=== PATIENT | male | born 1960 | race Caucasian/White ===

== ENCOUNTER → 2021-05-18 14:00 | Outpatient (BNVA) | payer OTHER, SELFPAY | PROVIDERS: PCP Physician Assistant; Visit Provider Internal Medicine Pulmonary Disease | DX: J43.8 Other emphysema (principal) | CPT/HCPCS: 99212 ==

== ENCOUNTER 2021-06-08 12:58 | Outpatient (REF) | payer OTHER, SELFPAY ==
--- NOTE | ~2021-06-08 | CT_ITS ---
EXAMINATION: CT CHEST SCREENING CLINICAL INFORMATION: Current smoker. 30 pack-year history. COMPARISON: Previous chest CT scans most recent March 2020 TECHNIQUE: Multidetector volumetric CT imaging of the chest is performed without contrast using low dose technique. Additional 2D coronal and sagittal reformatted images and axial 3D maximum intensity projection (MIP) images are generated on the CT workstation. This CT examination was performed using dose optimization techniques as appropriate, variously including the following: *Automated exposure control *Adjustment of mA and/or kV according to patient size (this includes techniques or standardized protocols for targeted exams where dose is matched to indication/reason for exam; i.e. extremities or head) *Use of iterative reconstruction technique DLP: 48 mGy-cm FINDINGS: LUNGS: There is evidence of mild emphysema. There is mild biapical pleural and parenchymal scarring. There is a 4 mm peripheral or subpleural right upper lobe nodule axial image 96 series 5 that is stable. There is a 3 mm semisolid left upper lobe nodule axial image 200 series 5 that is stable. There is a 2 mm left upper lobe nodule axial image 239 series 5 that is stable. There is a 2 mm calcified left lower lobe nodule axial image 302 series 5 that is able. There is linear scarring or chronic subsegmental atelectasis in the posterior basal left lower lobe that is stable. There is a new 3 mm right lower lobe nodule axial image 458 series 5 probably representing bronchial soft tissue opacification. MEDIASTINUM: There is mild coronary artery calcification. The mediastinum is otherwise normal. PLEURA: There is no pleural effusion. No pleural mass or thickening. AXILLA: No lymphadenopathy. UPPER ABDOMEN: Unremarkable OSSEOUS STRUCTURES: There are degenerative changes of the spine. There are old right-sided rib fractures. CT/CT lung screening IMPRESSION: Mild emphysema and biapical pleural parenchymal scarring. New 3 mm right lower lobe nodule probably representing endobronchial soft tissue opacification. Otherwise small pulmonary nodules are stable. ASSESSMENT: Lung-RADS category 2: Benign RECOMMENDATION: Annual low-dose chest CT follow-up recommended.
== END 2021-06-08 12:59 | disposition home or self-care (01) ==
LOC: HO.CT 12:58
PROVIDERS: PCP Physician Assistant; Visit Provider Physician Assistant Medical
DX: F17.210 Nicotine dependence, cigarettes, uncomplicated (principal)
CPT/HCPCS: 71271

== ENCOUNTER → 2021-06-14 09:12 | Outpatient (BNVA) | payer OTHER, SELFPAY | PROVIDERS: PCP Physician Assistant; Visit Provider Internal Medicine Pulmonary Disease | DX: J43.8 Other emphysema (principal) | CPT/HCPCS: 99212 ==

== ENCOUNTER → 2021-08-01 08:52 | Outpatient (REF) | payer OTHER, SELFPAY | LOC: HO.SL 08:52 | PROVIDERS: PCP Physician Assistant; Visit Provider Physician Assistant | DX: R06.81 Apnea, not elsewhere classified (principal) | CPT/HCPCS: 95806 ==

== ENCOUNTER → 2021-09-18 08:50 | Outpatient (BNVA) | payer OTHER, SELFPAY | PROVIDERS: PCP Physician Assistant; Visit Provider Internal Medicine Pulmonary Disease | DX: J43.8 Other emphysema (principal) | CPT/HCPCS: 99212 ==

== ENCOUNTER → 2022-04-23 08:53 | Outpatient (BNVA) | payer OTHER, SELFPAY | PROVIDERS: PCP Physician Assistant; Visit Provider Internal Medicine Pulmonary Disease | DX: J43.8 Other emphysema (principal); J34.2 Deviated nasal septum; Z87.891 Personal history of nicotine dependence | CPT/HCPCS: 99212 ==

== ENCOUNTER 2022-08-08 09:07 | Outpatient (REF) | payer OTHER, SELFPAY ==
[2022-08-08 10:03] LABS: Hematocrit 43.8 % (42.0-52.0); Mean Corpuscular HGB Conc 34.2 g/dl (31.0-36.0); Mean Corpuscular Hemoglobin 32.8 pg (27.0-33.0); Mean Corpuscular Volume 95.6 fL (80.0-98.0); Mean Platelet Volume 9.4 fL (9.4-12.4); Platelet Count 208 X10*3/uL (160-400); Red Blood Count 4.58 X10*6/uL (4.60-5.80); Red Cell Distribution Width 12.4 % (11.0-16.0); White Blood Count 7.9 X10*3/uL (4.8-10.8)
[2022-08-08 13:06] LABS: Alanine Aminotransferase 36 U/L (0-40); Albumin Level 4.7 g/dL (3.5-5.0); Alkaline Phosphatase 59 U/L (39-117); Anion Gap 15 (12-20); Aspartate Amino Transferase 39 U/L (5-37); Bilirubin Total 0.8 mg/dL (0.0-1.0); Blood Urea Nitrogen 22 mg/dL (9-16); Calcium 10.1 mg/dL (8.4-10.2); Carbon Dioxide 30 mmol/L (22-29); Chloride 97 mmol/L (96-108); Cholesterol 188 mg/dL; Estimated Glomerular Filt Rate > 60; Glucose Fasting 112 mg/dL (60-99); HDL Cholesterol 74 mg/dL; LDL Cholesterol Calculated 96 mg/dl; Potassium 3.3 mmol/L (3.3-5.1); Sodium 139 mmol/L (135-145); Total Protein 7.8 g/dL (6.5-8.0); Triglycerides 90 mg/dL
== END 2022-08-08 09:08 | disposition home or self-care (01) ==
LOC: HO.LAB 09:07
PROVIDERS: PCP Physician Assistant; Visit Provider Nurse Practitioner Family
DX: I10 Essential (primary) hypertension (principal)
CPT/HCPCS: 36415; 80053; 80061; 85027

== ENCOUNTER 2022-09-23 09:31 | Outpatient (REF) | payer OTHER, SELFPAY ==
--- NOTE | ~2022-09-23 | CT_ITS ---
EXAMINATION: CT CHEST SCREENING CLINICAL INFORMATION: Nicotine dependence. COMPARISON: CT chest 06/08/2021 TECHNIQUE: Multidetector volumetric CT imaging of the chest is performed without contrast using low dose technique. Additional 2D coronal and sagittal reformatted images and axial 3D maximum intensity projection (MIP) images are generated on the CT workstation. This CT examination was performed using dose optimization techniques as appropriate, variously including the following: *Automated exposure control *Adjustment of mA and/or kV according to patient size (this includes techniques or standardized protocols for targeted exams where dose is matched to indication/reason for exam; i.e. extremities or head) *Use of iterative reconstruction technique DLP: 51 mGy-cm FINDINGS: LUNGS: The lungs are mildly hyperinflated with minimal bilateral apical thickening and parenchymal scarring. There are scattered pulmonary nodules bilaterally. A 4 mm peripheral-based right upper lobe nodule medially axial image 13/4, peripherally-based 2 mm nodule left upper lobe axial image 206/6. There is a punctate calcification, left lower lobe adjacent to major fissure, image 39/4. A 3 mm nodule left CP angle axial image 58/4. MEDIASTINUM: The thyroid lobes are symmetric and normal. The central trachea and bronchi are widely patent. The heart size and great vessels are normal caliber. No abnormal size mediastinal or hilar lymphadenopathy seen. CORONARY ARTERY CALCIFICATION: There is trace coronary artery calcifications present. PLEURA: There is no pleural effusion. No pleural mass or thickening. AXILLA: No lymphadenopathy. UPPER ABDOMEN: Visualized liver, spleen, pancreas and bilateral adrenal glands are unremarkable. OSSEOUS STRUCTURES: No aggressive lytic or sclerotic process seen. CT/CT lung screening IMPRESSION: Emphysema with stable bilateral pulmonary nodules. No new pulmonary nodules seen. ASSESSMENT: Lung-RADS category 2: Benign RECOMMENDATION: Low-dose annual CT chest
== END 2022-09-23 09:32 | disposition home or self-care (01) ==
LOC: HO.CT 09:31
PROVIDERS: PCP Nurse Practitioner Family; Visit Provider Physician Assistant Medical
DX: Z12.2 Encounter for screening for malignant neoplasm of respiratory organs (principal); F17.210 Nicotine dependence, cigarettes, uncomplicated
CPT/HCPCS: 71271

== ENCOUNTER 2023-05-28 14:42 | Outpatient (AMB) | payer OTHER, SELFPAY ==
--- NOTE | 2023-05-28 15:05 | A.OFFPC_ITS ---
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 Accompanied by: Self / Same As Patient Allergies amlodipine Allergy (Unknown, Verified 05/28/23 15:31) Dizziness lisinopril Allergy (Unknown, Verified 05/28/23 15:31) Dizziness Medication List - Last Reconciled 05/28/23 by Julian Felder PA-C blood pressure monitor As directed hydrochlorothiazide 25 mg PO DAILY ibuprofen 800 mg PO BID losartan 25 mg PO DAILY metoprolol succinate ER 25 mg PO DAILY 30 days Ventolin HFA 90 mcg/actuation (albuterol sulfate) 2 puffs inhalation Q4-6H PRN 30 days NS Tobacco use date assessed: 12/19/22 Fall risk assessment: No Falls in past year Last assessed Fall Risk: 05/28/23 Dental Screening Dental Screen Date: 05/28/23 Did you have a dental visit in the last 12 months?: Yes Did you have a dental problem in the last 6 months where you did not have access to dental care?: No Was dental information given to patient?: Patient has dentist HPI Hypertension F/U HPI Details Yeyo 62 y/o male here today for follow-up visit.? Patient's past medical history significant for hypertension, moderate to severe Emphysema. ? COPD: HAs quite smoking ( 08/13/21) !! REports his breathing has been better. Doesnt use any inhalers at this time. He still continues to have some shortness of breath on exertion. Does use an albuterol inhaler on a very limited p.r.n. basis and is willing to use this more often for shortness of breath. .. HTN:? He does have a previous history of hypertension though has stopped taking blood pressure medication due to making him more dizzy.? Today in office blood pressure elevated today in office. Will refill his losartan 25 mg Advised to do home blood pressure monitoring and if consistently above 140/90 PFSH Medical History Normal colonoscopy Surgical History H/O hernia repair History of appendectomy Family History Father Medical history unknown Mother Medical history unknown Social History Housing: House Alcohol intake: current Alcohol intake frequency: 3 or more drinks per day Alcohol type: beer Patient Tobacco Use Status: Former Tobacco user Cigarettes Per Day: 10 Years Smoked: 45, pt states quit 08/14/22 e-Cigarette/Vaping Use: Never Used Current occupational status: retired Cognitive needs: No Hearing needs: No Vision needs: No Questionnaire Thrive Questionnaire Date Thrive assessed: 07/23/22 ISA-7 AMB Questionnaire ISA-7 Date ISA - 7 assessed: 10/22/21 Source: Developed by Drs. Driss Boykin, Malika Sneed, Aaron Hurtado and colleagues, with an educational juan alberto from [employer]. Review of Systems Const Denies headache(s) Eyes Denies loss of vision ENT Denies vertigo, Denies dizziness, Denies headache(s) and Denies sore throat Card Denies chest pain, Denies leg edema, Denies lightheadedness and Reports dyspnea on exertion Resp Denies cough, Denies hemoptysis, Reports dyspnea on exertion and Denies wheezing GI Denies abdominal pain, Denies melena, Denies constipation, Denies diarrhea and Denies vomiting Denies dysuria, Denies urinary frequency and Denies urinary urgency Musc Denies arthralgias, Denies joint swelling, Denies numbness and Denies tingling Neuro Denies Abnormal speech present, Denies behavioral changes, Denies vertigo, Denies dizziness, Denies headache(s), Denies loss of vision, Denies memory loss, Denies numbness and Denies tingling Psych Denies anxiety, Denies behavioral changes, Denies depression, Denies memory loss and Denies panic attacks Alejandro/Lymph Denies easy bleeding and Denies easy bruising Aller/Immun Denies wheezing Physical exam (Primary Care) Vital Signs: Last Vital Signs Pulse 76 05/28/23 15:12 Resp 17 05/28/23 15:12 BP 160/86 H 05/28/23 15:12 Pulse Ox 95 05/28/23 15:12 BMI result Body Mass Index 19.7 Tobacco/Smoking Status: Tobacco use Status Tobacco use date assessed 12/19/22 05/28/23 15:07 Patient Tobacco Use Status Former Tobacco user 05/28/23 15:07 e-Cigarette/Vaping Use Never Used 05/28/23 15:07 Thrive Assessment: Date of Thrive Assessment Date Thrive assessed 07/23/22 05/28/23 15:07 Const General: healthy appearing, no acute distress, alert and awake Nutritional Appearance: well nourished Orientation/consciousness: oriented to person, oriented to place and oriented to time HENMT Ears: TM's normal bilaterally General nose exam: Normal nasal mucous membranes and turbinates present Eyes Conjunctivae: conjunctivae normal Sclerae: sclerae normal Pupils: Equal, round and reactive pupils present Neck Neck: Yes no lymphadenopathy and Yes no JVD Thyroid: Thyroid normal Carotids: no bruits Resp Effort & Inspection: normal respiratory effort and not tachypneic Auscultation: no crackles, no rales, no rhonchi and no wheezes Cardio Rate: regular rate Rhythm: regular rhythm Heart sounds: no murmurs and normal S1 and S2 GI Palpation (GI): Soft to palpation, nontender, no hepatomegaly and no splenomegaly Auscultation: normal bowel sounds Skin General skin exam: no rashes or lesions noted and dry skin Neuro General: oriented to person, oriented to place and oriented to time Cranial nerves: Yes Equal, round and reactive pupils present Speech: No Abnormal speech present Gait exam (Neuro): Normal gait present Motor exam (neuro): no tremor noted Extrem Right upper extremity: full ROM Left upper extremity: full ROM Right lower extremity: full ROM; no edema Left lower extremity: full ROM; no edema Psych Mental Status: mental status grossly normal Speech and movement: Normal speech and movement present Affect: normal affect Attitude: cooperative Thought process: Normal thought process present Assessment and Plan Assessment & Plan (1) HTN (hypertension): Code(s): I10 - Essential (primary) hypertension Qualifiers: Hypertension type: essential hypertension Qualified Code(s): I10 - Essential (primary) hypertension Plan: Patient's blood pressure elevated today in office. He reports pressures are 40s to 160 systolic. Restart his losartan mg better blood pressure control. Goal pressures to be below 40/90 (2) COPD (chronic obstructive pulmonary disease): Code(s): J44.9 - Chronic obstructive pulmonary disease, unspecified Qualifiers: COPD type: emphysema Emphysema type: other Qualified Code(s): J43.8 - Other emphysema Plan: Patient is followed by lung cancer screening program. Most recent CT lung showing emphysema and stable appearance. He does report having some shortness of breath on exertion like going up stairs or long walks. Advised to use his albuterol inhaler before he does physical activity. We did discuss the possible need to repeat pulmonary function testing though patient is considering. Will consider maintenance inhaler if pulmonary symptoms worsen Orders: Orders Microalbumin, Random (w Creat) Today I10 - Essential (primary) hypertension Comprehensive [place]. Panel Fast Today I10 - Essential (primary) hypertension Complete Blood Count no Diff Today I10 - Essential (primary) hypertension Prostate Specific Antigen Scr Today I10 - Essential (primary) hypertension, Z12.5 - Encounter for screening for malignant neoplasm of prostate Medications: New loratadine (Allergy Relief (loratadine)) 10 mg PO DAILY 90 days 90 tabs 1RF J32.9 - Chronic sinusitis, unspecified albuterol sulfate 90 mcg/actuation (Ventolin HFA) 1 inh inhalation QID 30 days PRN 8.5 grams 1RF shortness of breath or wheezing J43.8 - Other emphysema Refilled hydrochlorothiazide 25 mg PO DAILY 90 tabs 1RF I10 - Essential (primary) hypertension losartan 25 mg PO DAILY 30 tabs 1RF I10 - Essential (primary) hypertension Discontinued Ventolin HFA 90 mcg/actuation (albuterol sulfate) Discontinued Reason: None 2 puffs inhalation Q4-6H 30 days PRN 18 grams 4RF shortness of breath or wheezing NS Coding Level of Care Code Est Pt Level 4 (11869) Diagnoses Essential hypertension I10 Hypertension type: essential hypertension Other emphysema J43.8 COPD type: emphysema Emphysema type: other
[2023-05-28 15:12] VITALS: BP 160/86; PULSE 76; RESP 17; O2SAT 95; BMI 19.7
== END 2023-05-28 15:53 | disposition home or self-care (01) ==
PROVIDERS: PCP Physician Assistant; Visit Provider Physician Assistant
DX: I10 Essential (primary) hypertension (principal); J43.8 Other emphysema; Z87.891 Personal history of nicotine dependence
CPT/HCPCS: 99214

== ENCOUNTER 2023-08-28 09:34 | Outpatient (AMB) | payer OTHER, SELFPAY ==
[2023-08-28 09:46] VITALS: BP 140/70; PULSE 72; RESP 17; BMI 20.3
--- NOTE | 2023-08-28 09:46 | MHC.PC.OV ---
Vital Signs 08/28/23 09:46 Height 5 ft 9 in Weight 137 lb 6 oz BMI 20.3 BP 140/70 H Blood Pressure Location Lt brachial Position Sitting Respiration 17 Pulse 72 Pulse Source Palpation Intake Visit Reasons: f/u HTN/ COPD Intake Note: Patient is here today for a physical. Glue Sprayer Required: No Accompanied by: Self / Same As Patient Allergies amlodipine Allergy (Unknown, Verified 08/28/23 10:08) Dizziness lisinopril Allergy (Unknown, Verified 08/28/23 10:08) Dizziness Medication List - Last Reconciled 08/28/23 by Julian Felder PA-C albuterol sulfate 90 mcg/actuation (Ventolin HFA) 1 inh inhalation QID PRN 30 days blood pressure monitor As directed hydrochlorothiazide 25 mg PO DAILY ibuprofen 800 mg PO BID loratadine (Allergy Relief (loratadine)) 10 mg PO DAILY 90 days losartan 25 mg PO DAILY Tobacco use date assessed: 08/28/23 Fall risk assessment: No Falls in past year Last assessed Fall Risk: 08/28/23 Dental Screening Dental Screen Date: 08/28/23 Did you have a dental visit in the last 12 months?: Yes Did you have a dental problem in the last 6 months where you did not have access to dental care?: No Was dental information given to patient?: Patient has dentist HPI f/u HTN/ COPD HPI Details Yeyo 62 y/o male here today for follow-up visit.? Patient's past medical history significant for hypertension, moderate to severe Emphysema. Concern--> reports he has been having some difficulty staying asleep. He was on sleeping aid medication in the past with good effect. He would like to restart sleeping medication. ? COPD: quite smoking ( 08/13/21) !! REports his breathing has been better. Doesnt use any inhalers at this time. He still continues to have some shortness of breath on exertion. Does use an albuterol inhaler on a very limited p.r.n. basis and is willing to use this more often for shortness of breath. .. HTN: Blood pressure today in office slightly elevated. He does report at home blood pressures are fairly stable 130-140 systolic. Continues on losartan and hydrochlorothiazide. Of note in the past had side effects to higher doses of blood pressure medication. Advised to do home blood pressure monitoring and if consistently above 140/90 [facility] Medical History Normal colonoscopy Surgical History H/O hernia repair History of appendectomy Family History Father Medical history unknown Mother Medical history unknown Social History Housing: House Alcohol intake: current Alcohol intake frequency: 3 or more drinks per day Alcohol type: beer Patient Tobacco Use Status: Former Tobacco user Cigarettes Per Day: 10 Years Smoked: 45, pt states quit 08/14/22 e-Cigarette/Vaping Use: Never Used service: No Current occupational status: retired Cognitive needs: No Hearing needs: No Vision needs: No Questionnaire PHQ-9 Over the last 2 weeks, how often have you been bothered by any of the following problems? 1. Little interest or pleasure in doing things: not at all 2. Feeling down, depressed, or hopeless: not at all 3. Trouble falling or staying asleep, or sleeping too much: not at all 4. Feeling tired or having little energy: not at all 5. Poor appetite or overeating: not at all 6. Feeling bad about yourself - or that you are a failure or have let yourself or your family down: not at all 7. Trouble concentrating on things, such as reading the newspaper or watching television: not at all 8. Moving or speaking so slowly that other people could have noticed. Or the opposite - being so fidgety or restless that you have been moving around a lot more than usual: not at all 9. Thoughts that you would be better off or of hurting yourself in some way: not at all Total score: 0 Depression Screening Interpretation: Negative Depression Screening Done: Yes 04027 - PHQ-9 Billing: Yes Source: Developed by Drs. Driss Boykin, Malika Sneed, Aaron Hurtado and colleagues, with an educational juan alberto from [employer]. Thrive Questionnaire Date Thrive assessed: 08/28/23 I am a: Patient What is your living situation today?: I have a steady place to live Within the past 12 months, did the food you bought not last and you didn't have the money to get more?: Never true Within the past 12 months, did you worry whether your food would run out before you got money to buy more?: Never true Do you have trouble paying for medicines?: No Do you have trouble getting transportation to medical appointments?: No Do you have trouble paying your heating and electricity bill?: No Do you have trouble taking care of your child, family member or friend?: No Do you have trouble with day-to-day activities such as bathing, preparing meals, shopping, managing finances, etc.?: No Are you currently unemployed and looking for a job?: No Are you interested in more education?: No Please select the resources that you would like help with: None Currently or been in a relationship where the following occur: no concerns reported AUDIT C Alcohol Use Questionnaire (AUDIT-C) 1. How often do you have a drink containing alcohol?: 2-3 times a week 2. How many drinks containing alcohol do you have on a typical day when you are drinking?: 5 or 6 3. How often do you have six or more drinks on one occasion?: Never Total Score: 5 Score Reviewed/Action Taken: Yes ISA-7 AMB Questionnaire ISA-7 Date ISA - 7 assessed: 08/28/23 Feeling nervous, anxious, or on edge: 0 = Not at all Not being able to stop or control worryin = Not at all Worrying too much about different things: 0 = Not at all Trouble relaxin = Not at all Being so restless that it is hard to sit still: 0 = Not at all Becoming easily annoyed or irritable: 0 = Not at all Feeling afraid as if something awful might happen: 0 = Not at all Total ISA-7 score (0-4 normal; 5-9 mild; 10-14 moderate; 15-21 severe): 0 Source: Developed by Drs. Driss Boykin, Malika Sneed, Aaron Hurtado and colleagues, with an educational juan alberto from [employer]. ISA-7 Assessment Billing ISA-7 Assessment Tool: ISA-7 Assessment 73014 Review of Systems Const Denies headache(s) Eyes Denies loss of vision ENT Denies vertigo, Denies dizziness, Denies headache(s) and Denies sore throat Card Denies chest pain, Denies leg edema and Denies lightheadedness Resp Denies cough, Denies hemoptysis and Denies wheezing GI Denies abdominal pain, Denies melena, Denies constipation, Denies diarrhea and Denies vomiting Denies dysuria, Denies urinary frequency and Denies urinary urgency Musc Denies arthralgias, Denies joint swelling, Denies numbness and Denies tingling Neuro Denies Abnormal speech present, Denies behavioral changes, Denies vertigo, Denies dizziness, Denies headache(s), Denies loss of vision, Denies memory loss, Denies numbness and Denies tingling Psych Denies anxiety, Denies behavioral changes, Denies depression, Denies memory loss and Denies panic attacks Alejandro/Lymph Denies easy bleeding and Denies easy bruising Aller/Immun Denies wheezing Physical exam (Primary Care) Vital Signs: Last Vital Signs Pulse 72 08/28/23 09:46 Resp 17 08/28/23 09:46 BP 140/70 H 08/28/23 09:46 BMI result Body Mass Index 20.3 Tobacco/Smoking Status: Tobacco use Status Tobacco use date assessed 08/28/23 08/28/23 09:58 Patient Tobacco Use Status Former Tobacco user 08/28/23 09:46 e-Cigarette/Vaping Use Never Used 08/28/23 09:46 PHQ-9: PHQ-9 Score PHQ-9: Total score 0 08/28/23 10:18 Depression Screening Interpretation: Negative Thrive Assessment: Date of Thrive Assessment Date Thrive assessed 08/28/23 08/28/23 09:58 Currently or been in a relationship where the following occur: no concerns reported Const General: healthy appearing, no acute distress, alert and awake Nutritional Appearance: well nourished Orientation/consciousness: oriented to person, oriented to place and oriented to time HENMT Ears: TM's normal bilaterally General nose exam: Normal nasal mucous membranes and turbinates present Eyes Conjunctivae: conjunctivae normal Sclerae: sclerae normal Pupils: Equal, round and reactive pupils present Neck Neck: Yes no lymphadenopathy and Yes no JVD Thyroid: Thyroid normal Carotids: no bruits Resp Effort & Inspection: normal respiratory effort and not tachypneic Auscultation: no crackles, no rales, no rhonchi and no wheezes Cardio Rate: regular rate Rhythm: regular rhythm Heart sounds: no murmurs and normal S1 and S2 GI Palpation (GI): Soft to palpation, nontender, no hepatomegaly and no splenomegaly Auscultation: normal bowel sounds Skin General skin exam: no rashes or lesions noted and dry skin Neuro General: oriented to person, oriented to place and oriented to time Cranial nerves: Yes Equal, round and reactive pupils present Speech: No Abnormal speech present Gait exam (Neuro): Normal gait present Motor exam (neuro): no tremor noted Extrem Right upper extremity: full ROM Left upper extremity: full ROM Right lower extremity: full ROM; no edema Left lower extremity: full ROM; no edema Psych Mental Status: mental status grossly normal Speech and movement: Normal speech and movement present Affect: normal affect Attitude: cooperative Thought process: Normal thought process present Assessment and Plan Assessment & Plan (1) HTN (hypertension): Code(s): I10 - Essential (primary) hypertension Qualifiers: Hypertension type: essential hypertension Qualified Code(s): I10 - Essential (primary) hypertension Plan: Patient's blood pressure slightly elevated today in office. His home blood pressure readings are 130s to 140 systolic. Not interested in increasing his blood pressure medication at this time. Advised to continue monitoring blood pressure at home. Goal pressures to be below 140/90 (2) COPD (chronic obstructive pulmonary disease): Code(s): J44.9 - Chronic obstructive pulmonary disease, unspecified Qualifiers: COPD type: emphysema Emphysema type: other Qualified Code(s): J43.8 - Other emphysema Plan: Patient is followed by lung cancer screening program. CT lung showing emphysema and stable appearance. He does report having some shortness of breath on exertion like going up stairs or long walks. Advised to use his albuterol inhaler before he does physical activity. We did discuss the possible need to repeat pulmonary function testing though patient is considering. Will consider maintenance inhaler if pulmonary symptoms worsen (3) Insomnia: Code(s): G47.00 - Insomnia, unspecified Qualifiers: Insomnia type: primary Qualified Code(s): F51.01 - Primary insomnia Plan: Reports he has been suffering with some insomnia as of late. Was on sleeping medication the past. Willing to start hydroxyzine 10-20 mg before bed. (4) Former smoker: Code(s): Z87.891 - Personal history of nicotine dependence Plan: As above has quit smoking in 2020. Currently part of the lung cancer screening program here in [place]. Medications: New hydroxyzine HCl 20 mg (2 x 10 mg) PO BEDTIME 30 days 60 tabs 1RF F41.9 - Anxiety disorder, unspecified, F51.01 - Primary insomnia Coding Level of Care Code Est Pt Level 4 (68185) Diagnoses Essential hypertension I10 Hypertension type: essential hypertension Other emphysema J43.8 COPD type: emphysema Emphysema type: other Primary insomnia F51.01 Insomnia type: primary Former smoker Z87.891 Additional Codes ISA-7 Assessment Billing - ISA-7 Assessment Tool: ISA-7 Assessment 79301 ([id number])
== END 2023-08-28 10:26 | disposition home or self-care (01) ==
PROVIDERS: PCP Physician Assistant; Visit Provider Physician Assistant
DX: I10 Essential (primary) hypertension (principal); J43.8 Other emphysema; F51.01 Primary insomnia; Z87.891 Personal history of nicotine dependence
CPT/HCPCS: 99214

== ENCOUNTER 2023-09-29 08:36 | Outpatient (REF) | payer OTHER, SELFPAY ==
--- NOTE | ~2023-09-29 | CT_ITS ---
EXAMINATION: CT CHEST SCREENING CLINICAL INFORMATION: 50 pack year smoking history; question 2 years prior. COMPARISON: Prior CT chest screening examinations, most recently 09/26/2022. TECHNIQUE: Multidetector volumetric CT imaging of the chest is performed without contrast using low dose technique. Additional 2D coronal and sagittal reformatted images and axial 3D maximum intensity projection (MIP) images are generated on the CT workstation. This CT examination was performed using dose optimization techniques as appropriate, variously including the following: *Automated exposure control *Adjustment of mA and/or kV according to patient size (this includes techniques or standardized protocols for targeted exams where dose is matched to indication/reason for exam; i.e. extremities or head) *Use of iterative reconstruction technique DLP: 47 mGy-cm FINDINGS: LUNGS: At the posteromedial right apex (5:83), a stable 3 mm benign pleural-based lymph node is seen. Within the anterior segment of the left upper lobe (5:180, 222 and 280), 3 mm, 2 mm and 3 mm peripheral noncalcified nodules are seen. A small benign, calcified granuloma is seen within the superior segment of the left lower lobe (5:296). There is no new nodule, mass, infiltrate or groundglass opacity. No generalized increase is seen in peripheral interlobular septal markings. No bleb or bullous formation is seen. There are scattered foci of minor scar/subsegmental atelectasis at the left base, without associated focal airway obstruction. There is no generalized small airway thickening. The central airways appear patent. MEDIASTINUM: The thyroid is unremarkable. There is no thoracic aortic aneurysm. There are mild atherosclerotic calcifications of the great vessel origins and thoracic aorta. No mediastinal or hilar lymphadenopathy is seen. CORONARY ARTERY CALCIFICATION: None. PLEURA: There is no pleural effusion. No pleural mass or thickening. AXILLA: No lymphadenopathy. UPPER ABDOMEN: Unremarkable OSSEOUS STRUCTURES: There is mild lower thoracic spondylosis. There are old, healed right seventh and eighth rib fractures. No acute or aggressive osseous finding is seen. CT/CT lung screening IMPRESSION: There are benign, stable bilateral tiny noncalcified and calcified lung nodules. No new nodule, mass, infiltrate or groundglass opacity is seen. There are left base foci of minor scar/subsegmental atelectasis. There is no thoracic lymphadenopathy or pleural effusion. No aggressive osseous lesion is seen. ASSESSMENT: Lung-RADS category 2: Benign RECOMMENDATION: Routine annual low-dose CT screening in 12 months.
== END 2023-09-29 08:37 | disposition home or self-care (01) ==
LOC: HO.CT 08:36
PROVIDERS: PCP Physician Assistant; Visit Provider Physician Assistant Medical
DX: Z87.891 Personal history of nicotine dependence (principal)
CPT/HCPCS: 71271

== ENCOUNTER 2024-01-22 08:28 | Outpatient (REF) | payer MEDICARE, SELFPAY ==
[2024-01-22 08:57] LABS: Hematocrit 37.5 % (42.0-52.0); Hemoglobin 13.1 g/dl (14.0-18.0); Mean Corpuscular HGB Conc 34.9 g/dl (31.0-36.0); Mean Corpuscular Hemoglobin 32.7 pg (27.0-33.0); Mean Corpuscular Volume 93.5 fL (80.0-98.0); Mean Platelet Volume 8.8 fL (9.4-12.4); Platelet Count 283 X10*3/uL (160-400); Red Blood Count 4.01 X10*6/uL (4.60-5.80); Red Cell Distribution Width 12.1 % (11.0-16.0); White Blood Count 8.4 X10*3/uL (4.8-10.8)
[2024-01-22 09:16] LABS: Alanine Aminotransferase 23 U/L (0-40); Albumin Level 4.2 g/dL (3.5-5.0); Alkaline Phosphatase 48 U/L (39-117); Anion Gap 15 (12-20); Aspartate Amino Transferase 25 U/L (5-37); Bilirubin Total 0.4 mg/dL (0.0-1.0); Blood Urea Nitrogen 25 mg/dL (9-16); Calcium 9.2 mg/dL (8.4-10.2); Carbon Dioxide 25 mmol/L (22-29); Chloride 103 mmol/L (96-108); Estimated Glomerular Filt Rate 58; Glucose Fasting 89 mg/dL (60-99); Potassium 3.7 mmol/L (3.3-5.1); Sodium 139 mmol/L (135-145); Total Protein 7.4 g/dL (6.5-8.0)
[2024-01-22 09:19] LABS: Creatinine Urine 84.31 mg/dL; Microalbumin Urine < 5.0 mg/L
[2024-01-22 09:38] LABS: Prostate Specific Antigen Scr 3.47 ng/mL (<0.05-4.0)
== END 2024-01-22 08:29 | disposition home or self-care (01) ==
LOC: HO.LAB 08:28
PROVIDERS: PCP Physician Assistant; Visit Provider Physician Assistant
DX: I10 Essential (primary) hypertension (principal); Z12.5 Encounter for screening for malignant neoplasm of prostate
CPT/HCPCS: 36415; 80053; 82043; 82570; 84153; 85027

== ENCOUNTER 2024-03-11 11:29 | Outpatient (AMB) | payer MEDICARE, SELFPAY ==
[2024-03-11 12:02] VITALS: BP 128/66; PULSE 86; O2SAT 94
--- NOTE | 2024-03-11 12:02 | A.OFFPC_ITS ---
Vital Signs 03/11/24 12:02 03/11/24 12:19 Height 5 ft 9 in Weight 135 lb 6 oz BMI 20.0 BP 128/66 132/60 Blood Pressure Location Lt brachial Position Sitting Pulse 86 Pulse Source Pulse Oximeter Pulse Oximetry (%) 94 Oxygen Delivery Method Room Air Intake Visit Reasons: pe Intake Note: Patient is here today for a physical. 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 Required: No Accompanied by: Self / Same As Patient Allergies amlodipine Allergy (Unknown, Verified 03/11/24 12:07) Dizziness lisinopril Allergy (Unknown, Verified 03/11/24 12:07) Dizziness Medication List - Last Reconciled 03/11/24 by Julian Felder PA-C albuterol sulfate 90 mcg/actuation (Ventolin HFA) 1 inh inhalation QID PRN 30 days blood pressure monitor As directed hydrochlorothiazide 25 mg PO DAILY hydroxyzine HCl 20 mg (2 x 10 mg) PO BEDTIME 30 days ibuprofen 800 mg PO BID loratadine (Allergy Relief (loratadine)) 10 mg PO DAILY 90 days losartan 25 mg PO DAILY Tobacco use date assessed: 08/28/23 Fall risk assessment: No Falls in past year Last assessed Fall Risk: 03/11/24 Dental Screening Dental Screen Date: 08/28/23 HPI pe HPI Details Yeyo 63 y/o male here today for follow-up visit.? Patient's past medical history significant for hypertension, moderate to severe Emphysema. Concern--> he reports he still has intermittent episodes dizziness often associated when getting up from a lying down position. This has been going on for many years and we had made adjustments in his blood pressure medication. PLAN: Advised to hold hydrochlorothiazide and monitor symptoms. ? COPD: quite smoking ( 08/13/21) !! REports his breathing has been better. Doesnt use any inhalers at this time. He still continues to have some shortness of breath on exertion. Does use an albuterol inhaler on a very limited p.r.n. basis and is willing to use this more often for shortness of breath. .. HTN: Blood pressure today in office acceptable. He does report at home blood pressures are fairly stable 130-140 systolic. Continues on losartan and hydrochlorothiazide. Of note in the past had side effects to higher doses of blood pressure medication. PLAN: Due to the continued intermittent episodes of dizziness will hold his hydrochlorothiazide and see how symptoms go. Colonoscopy: done in 2017, normal repeat in 10 years .. Vaccine: UTD with Tdap/ Pneumonia , COVID , considering shingles vaccine. PFSH Medical History Normal colonoscopy Surgical History H/O hernia repair History of appendectomy Family History Father Medical history unknown Mother Medical history unknown Social History (Updated 03/11/24 @ 12:12 by Julian Felder PA-C) Housing: House Alcohol intake: current Alcohol intake frequency: a few times a week Alcohol type: beer Patient Tobacco Use Status: Former Tobacco user Cigarettes Per Day: 10 Years Smoked: 45, pt states quit 08/14/22 e-Cigarette/Vaping Use: Never Used service: No Current occupational status: retired Cognitive needs: No Hearing needs: No Vision needs: No Questionnaire Thrive Questionnaire Date Thrive assessed: 08/28/23 ISA-7 AMB Questionnaire ISA-7 Date ISA - 7 assessed: 08/28/23 Source: Developed by Drs. Driss Boykin, Malika Sneed, Aaron Hurtado and colleagues, with an educational juan alberto from [employer]. Review of Systems Const Denies body aches, Denies chills, Denies excessive sweating, Denies fatigue, Denies fever(s) and Denies headache(s) Eyes Denies blurry vision ENT Denies dysphagia, Denies vertigo, Denies dizziness, Denies headache(s), Denies hearing loss and Denies tinnitus Card Denies chest pain, Denies chest pain with activity, Denies syncope, Denies irregular heart rhythm and Denies dyspnea Resp Denies chest congestion, Denies cough, Denies hemoptysis, Denies dyspnea and Denies wheezing GI Denies abdominal pain, Denies melena, Denies hematochezia, Denies coffee ground emesis, Denies dysphagia, Denies diarrhea, Denies nausea and Denies vomiting Denies difficulty urinating, Denies dysuria, Denies urinary frequency, Denies urinary hesitancy and Denies urinary urgency Musc Denies arthralgias, Denies limited range of motion, Denies muscle cramps and Denies muscle weakness Skin/Breast Denies rash and Denies skin ulcer Neuro Denies Abnormal speech present, Denies confusion, Denies vertigo, Denies dizziness, Denies syncope, Denies headache(s), Denies memory loss and Denies seizure-like activity Psych Denies anxiety, Denies confusion, Denies depression, Denies memory loss, Denies panic attacks and Denies paranoia Endo Denies excessive sweating, Denies fatigue, Denies flushing, Denies polydipsia and Denies polyuria Aller/Immun Denies wheezing Physical exam (Primary Care) Vital Signs: Last Vital Signs Pulse 86 03/11/24 12:02 BP 132/60 03/11/24 12:19 Pulse Ox 94 03/11/24 12:02 Oxygen Delivery Method Room Air 03/11/24 12:02 BMI result Body Mass Index 20.0 Tobacco/Smoking Status: Tobacco use Status Tobacco use date assessed 08/28/23 03/11/24 12:03 Patient Tobacco Use Status Former Tobacco user 03/11/24 12:12 e-Cigarette/Vaping Use Never Used 03/11/24 12:12 Thrive Assessment: Date of Thrive Assessment Date Thrive assessed 08/28/23 03/11/24 12:03 Const General: cooperative, comfortable, no acute distress, alert and awake; No confusion Orientation/consciousness: oriented to person, oriented to place, patient oriented x3 and No confusion HENMT Head: Yes normocephalic Ears: external ears normal and TM's normal bilaterally Face and sinus: No sinus tenderness Mouth: Normal oral and palatal mucosa present and tongue normal Teeth and gingiva: dentition normal and gingiva normal Throat: Yes posterior oropharynx normal, Yes tonsils normal and Yes uvula midline Eyes Conjunctivae: conjunctivae normal Sclerae: sclerae normal Pupils: Equal, round and reactive pupils present EOM: EOMs intact bilaterally Direct Ophthalmoscopy: No no photophobia Neck Neck: Yes no lymphadenopathy, No tender and Yes no JVD Thyroid: Thyroid normal Carotids: no bruits Chest Chest palpation & inspection: no tenderness Resp Effort & Inspection: normal respiratory effort, no audible wheezes, not labored and no stridor Auscultation: no crackles, no rales, no rhonchi and no wheezes Cardio Jugular venous distension: no JVD Rate: regular rate, not bradycardic and not tachycardic Rhythm: regular rhythm Bruits: no carotid bruits Peripheral pulses: Peripheral pulses 2+ throughout GI Inspection: Yes normal to inspection, No abdominal wall ecchymosis and No visible herniation Palpation (GI): Soft to palpation, nontender, no guarding, not rigid and No hepatosplenomegaly present Auscultation: normoactive bowel sounds General: Yes no CVA tenderness Back/Spine/Pelvis Back: no CVA tenderness and No back tenderness Cervical Spine: cervical ROM normal Thoracic/Lumbar Spine: thoracic and lumbar spine normal to inspection, straight leg raise negative bilaterally, No thoraco-lumbar ROM limited and No lumbar spinal tenderness Skin Lesions: no lesions Rashes: no rashes Wounds: no wounds Neuro General: oriented to person, oriented to place, patient oriented x3, CN's II-XI intact bilaterally and No confusion Cranial nerves: Yes Equal, round and reactive pupils present and Yes Normal accommodation reflex present Cognition (Neuro): normal cognition Speech: No Abnormal speech present Gait exam (Neuro): Normal gait present Motor exam (neuro): 5/5 motor strength present throughout Extrem Right upper extremity: full ROM; no cyanosis Left upper extremity: full ROM; no cyanosis Right lower extremity: no edema Left lower extremity: no edema Psych Appearance: grossly normal Mental Status: mental status grossly normal Affect: normal affect Attitude: cooperative Thought process: Normal thought process present Assessment and Plan Assessment & Plan (1) Annual physical exam: Code(s): Z00.00 - Encounter for general adult medical examination without abnormal findings (2) HTN (hypertension): Code(s): I10 - Essential (primary) hypertension Qualifiers: Hypertension type: essential hypertension Qualified Code(s): I10 - Essential (primary) hypertension Plan: Patient's blood pressure acceptable today in office His home blood pressure readings are 130s to 140 systolic. Advised to continue monitoring blood pressure at home. Goal pressures to be below 140/90 (3) COPD (chronic obstructive pulmonary disease): Code(s): J44.9 - Chronic obstructive pulmonary disease, unspecified Qualifiers: COPD type: emphysema Emphysema type: other Qualified Code(s): J43.8 - Other emphysema Plan: Patient is followed by lung cancer screening program. CT lung showing emphysema and stable appearance. He does report having some shortness of breath on exertion like going up stairs or long walks. Advised to use his albuterol inhaler before he does physical activity. We did discuss the possible need to repeat pulmonary function testing though patient is considering. Will consider maintenance inhaler if pulmonary symptoms worsen (4) Insomnia: Code(s): G47.00 - Insomnia, unspecified Qualifiers: Insomnia type: primary Qualified Code(s): F51.01 - Primary insomnia Plan: Reports he has been suffering with some insomnia as of late. Was on sleeping medication the past. He does have hydroxyzine available to him. He also reports he will be trialing marijuana gummies to sleep (5) Former smoker: Code(s): Z87.891 - Personal history of nicotine dependence Plan: As above has quit smoking in 2020. Currently part of the lung cancer screening program here in [place]. (6) Anemia: Code(s): D64.9 - Anemia, unspecified Qualifiers: Anemia type: other cause Other causes of anemia: chronic disease, neoplastic Qualified Code(s): D63.0 - Anemia in neoplastic disease Plan: Noted anemia with normal MCV. Likely anemia of chronic disease. Will continue to follow. Patient Instructions: Goal: Blood pressure to be below 140/90 Barriers: Adherence to physical activity and healthy eating habits Coding Level of Care Code Est Pt Prev Care >65y(55431) Diagnoses Annual physical exam Z00.00 Essential hypertension I10 Hypertension type: essential hypertension Other emphysema J43.8 COPD type: emphysema Emphysema type: other Primary insomnia F51.01 Insomnia type: primary Former smoker Z87.891 Anemia in neoplastic disease D63.0 Anemia type: other cause Other causes of anemia: chronic disease, neoplastic
[2024-03-11 12:19] VITALS: BP 132/60
== END 2024-03-11 12:28 | disposition home or self-care (01) ==
PROVIDERS: PCP Physician Assistant; Visit Provider Physician Assistant
DX: Z00.00 Encounter for general adult medical examination without abnormal findings (principal); I10 Essential (primary) hypertension; J43.8 Other emphysema; F51.01 Primary insomnia; Z87.891 Personal history of nicotine dependence; D63.0 Anemia in neoplastic disease
CPT/HCPCS: 99397

== ENCOUNTER 2024-10-14 11:02 | Outpatient (REF) | payer MEDICARE, SELFPAY ==
--- NOTE | ~2024-10-14 | CT_ITS ---
CLINICAL HISTORY: Z87.891 - Personal history of nicotine dependence CT lung cancer screening (LDCT) Comparison: CT/REG/UT/SR - CT LUNG SCREENING - 09/29/23 08:43 EST Technique: Axial CT images of the chest using low-dose technique. Referring provider counseled the patient on shared decision-making for LDCT screening. Additional counseling was provided on smoking cessation. Effective radiation dose total: DLP 35.1 mGycm, CTDIvol 0.9 mGy. Findings: Stable 2 mm left upper lobe nodule on image 60. Stable 2 mm left upper lobe nodule on image 72. Stable 2 mm left upper lobe nodule on image 90. Stable 2 mm right middle lobe nodule on image 109. New 2 mm right upper lobe nodule on image 112. No consolidation or pleural effusion. Coronary artery calcifications: Mild Limited upper abdomen: Unremarkable Other: None Impression: Category 2: Benign appearance or behavior, continue annual screening. Category 1: Normal; continue annual screening Category 2: Benign appearance or behavior, continue annual screening Category 3: Probably benign, [address] recommended Category 4A: Suspicious, [address] recommended; may consider PET/CT Category 4B: Suspicious, Additional diagnostics and/or tissue sampling recommended Category 4X: Suspicious, Additional diagnostics and/or tissue sampling recommended Category 0: Recalls (incomplete screen due to Incomplete coverage, Noise, Respiratory motion, Expiration, Obscured by acute abnormality) This document has been electronically signed by: Dayami Hauser MD on 10/14/2024 14:54:40
--- OUTSIDE RECORDS SUMMARY | 2024-10-14 12:21 | XMS_ITS | Clinical Summary ---
Author Organization [facility] Address [address] [place] [address] Care Team Providers Care Cook Roast Name Role Phone Unavailable Primary Care Provider Unavailabl e Social History Tobacco Use Types Packs/Day Years Used Date Smoking Tobacco: Never Assessed Sex and Gender Information Value Date Recorded Sex Assigned at Not on file Gender Identity Not on file Sexual Orientation Not on file Plan of Treatment Not on file
== END 2024-10-14 11:03 | disposition home or self-care (01) ==
LOC: HO.CT 11:02
PROVIDERS: PCP Physician Assistant; Visit Provider Physician Assistant Medical
DX: Z12.2 Encounter for screening for malignant neoplasm of respiratory organs (principal); Z87.891 Personal history of nicotine dependence
CPT/HCPCS: 71271

== ENCOUNTER → 2024-10-14 11:04 | Outpatient (BNV) | payer MEDICARE, SELFPAY | PROVIDERS: PCP Physician Assistant; Visit Provider Radiology Diagnostic Radiology | DX: Z87.891 Personal history of nicotine dependence (principal) | CPT/HCPCS: 71271 ==

== ENCOUNTER 2024-12-13 14:57 | Outpatient (AMB) | payer MEDICARE, SELFPAY ==
--- OUTSIDE RECORDS SUMMARY | 2024-12-13 15:01 | XMS_ITS | Clinical Summary ---
Author Organization [facility] Address [address] [place] [address] Care Team Providers Care Professor Of Physical Education Name Role Phone Unavailable Primary Care Provider Unavailabl e Social History Tobacco Use Types Packs/Day Years Used Date Smoking Tobacco: Never Assessed Sex and Gender Information Value Date Recorded Sex Assigned at Not on file Gender Identity Not on file Sexual Orientation Not on file Plan of Treatment Not on file
[2024-12-13 15:11] VITALS: BP 140/62; PULSE 75; TEMP 36.3; O2SAT 94; BMI 20.4
--- NOTE | 2024-12-13 15:11 | MHC.PC.OV ---
Vital Signs 12/13/24 15:11 Height 5 ft 9 in Weight 138 lb 6 oz BMI 20.4 BP 140/62 H Blood Pressure Location Lt brachial Position Sitting Pulse 75 Pulse Source Pulse Oximeter Temp 97.3 F Temp Source Temporal Artery Scan Pulse Oximetry (%) 94 Oxygen Delivery Method Room Air Intake Visit Reasons: 6 Month F/Uq Education Department Chair Required: No Accompanied by: Self / Same As Patient Allergies amlodipine Allergy (Unknown, Verified 12/13/24 15:30) Dizziness lisinopril Allergy (Unknown, Verified 12/13/24 15:30) Dizziness HCTZ Adverse Reaction (Intermediate, Uncoded 12/13/24 15:34) dizziness Medication List - Last Reconciled 12/13/24 by Julian Felder PA-C albuterol sulfate 90 mcg/actuation (Ventolin HFA) 1 inh inhalation QID PRN 30 days blood pressure monitor As directed hydroxyzine HCl 20 mg (2 x 10 mg) PO BEDTIME 30 days losartan 25 mg PO DAILY Tobacco use date assessed: 12/13/24 Fall risk assessment: No Falls in past year Last assessed Fall Risk: 12/13/24 Dental Screening Dental Screen Date: 12/13/24 Did you have a dental visit in the last 12 months?: Yes Did you have a dental problem in the last 6 months where you did not have access to dental care?: No Was dental information given to patient?: No HPI 6 Month F/Uq HPI Details Yeyo 64 y/o male here today for follow-up visit.? Patient's past medical history significant for hypertension, moderate to severe Emphysema. Concern--> He describes experiencing rest-related intermittent chest pain not exacerbated by activity, suggestive of possible heart-related issues considering his smoking history. PLAN: Will set patient up for cardiac stress test to evaluate for cardiac ischemia physical exertion. ? COPD: Smoked 50 years, quite smoking ( 08/13/21) !! Patient continues to follow the lung cancer screening program. COPD symptoms have escalated over the past year, with increased dyspnea noted during exertion and inadequate relief from prior inhaler use. PLAN: Supply patient with a maintenance inhaler (anoro) to use for his pulmonary symptoms. .. HTN: Blood pressure today in office slightly elevated, patient does not monitor his blood pressure on regular basis. He has stopped hydrochlorothiazide due to dizziness in his dizziness has resolved.. [facility] Medical History (Updated 12/13/24 @ 15:41 by Julian Felder PA-C) HTN (hypertension) Personal history of nicotine dependence Normal colonoscopy Surgical History H/O hernia repair History of appendectomy Family History Father Medical history unknown Mother Medical history unknown Social History Housing: House Alcohol intake: current Alcohol intake frequency: a few times a week Alcohol type: beer Patient Tobacco Use Status: Former Tobacco user Cigarettes Per Day: 10 Years Smoked: 45, pt states quit 08/14/22 e-Cigarette/Vaping Use: Never Used service: No Current occupational status: retired Cognitive needs: No Hearing needs: No Vision needs: No Questionnaire PHQ-9 Over the last 2 weeks, how often have you been bothered by any of the following problems? 1. Little interest or pleasure in doing things: not at all 2. Feeling down, depressed, or hopeless: not at all 3. Trouble falling or staying asleep, or sleeping too much: not at all 4. Feeling tired or having little energy: not at all 5. Poor appetite or overeating: not at all 6. Feeling bad about yourself - or that you are a failure or have let yourself or your family down: not at all 7. Trouble concentrating on things, such as reading the newspaper or watching television: not at all 8. Moving or speaking so slowly that other people could have noticed. Or the opposite - being so fidgety or restless that you have been moving around a lot more than usual: not at all 9. Thoughts that you would be better off or of hurting yourself in some way: not at all Total score: 0 Depression Screening Interpretation: Negative Depression Screening Done: Yes 39056 - PHQ-9 Billing: Yes Source: Developed by Drs. Driss Boykin, Malika Sneed, Aaron Hurtado and colleagues, with an educational juan alberto from [employer]. Thrive Questionnaire Date Thrive assessed: 12/13/24 I am a: Patient What is your living situation today?: I have a steady place to live Within the past 12 months, did the food you bought not last and you didn't have the money to get more?: Never true Within the past 12 months, did you worry whether your food would run out before you got money to buy more?: Never true Do you have trouble paying for medicines?: No Do you have trouble getting transportation to medical appointments?: No Do you have trouble paying your heating and electricity bill?: No Do you have trouble taking care of your child, family member or friend?: No Do you have trouble with day-to-day activities such as bathing, preparing meals, shopping, managing finances, etc.?: No Are you currently unemployed and looking for a job?: No Are you interested in more education?: No Please select the resources that you would like help with: None Currently or been in a relationship where the following occur: No concerns reported THRIVE Score: 0 AUDIT C Alcohol Use Questionnaire (AUDIT-C) 1. How often do you have a drink containing alcohol?: 2-4 times a month 2. How many drinks containing alcohol do you have on a typical day when you are drinking?: 5 or 6 3. How often do you have six or more drinks on one occasion?: Weekly Total Score: 7 ISA-7 AMB Questionnaire ISA-7 Date ISA - 7 assessed: 12/13/24 Feeling nervous, anxious, or on edge: 0 = Not at all Not being able to stop or control worryin = Not at all Worrying too much about different things: 0 = Not at all Trouble relaxin = Not at all Being so restless that it is hard to sit still: 0 = Not at all Becoming easily annoyed or irritable: 0 = Not at all Feeling afraid as if something awful might happen: 0 = Not at all Total ISA-7 score (0-4 normal; 5-9 mild; 10-14 moderate; 15-21 severe): 0 Source: Developed by Drs. Driss Boykin, Malika Sneed, Aaron Hurtado and colleagues, with an educational juan alberto from [employer] ISA-7 Assessment Billing ISA-7 Assessment Tool: ISA-7 Assessment 87517 Review of Systems Const Denies headache(s) Eyes Denies loss of vision ENT Denies vertigo, Denies dizziness, Denies headache(s) and Denies sore throat Card Reports chest pain, Reports chest pain at rest, Denies leg edema, Denies lightheadedness, Reports dyspnea and Reports dyspnea on exertion Resp Denies cough, Denies hemoptysis, Reports dyspnea, Reports dyspnea on exertion and Denies wheezing GI Denies abdominal pain, Denies melena, Denies constipation, Denies diarrhea and Denies vomiting Denies dysuria, Denies urinary frequency and Denies urinary urgency Musc Denies arthralgias, Denies joint swelling, Denies numbness and Denies tingling Neuro Denies Abnormal speech present, Denies behavioral changes, Denies vertigo, Denies dizziness, Denies headache(s), Denies loss of vision, Denies memory loss, Denies numbness and Denies tingling Psych Denies anxiety, Denies behavioral changes, Denies depression, Denies memory loss and Denies panic attacks Alejandro/Lymph Denies easy bleeding and Denies easy bruising Aller/Immun Denies wheezing Physical exam (Primary Care) Vital Signs: Last Vital Signs Temp 97.3 F 12/13/24 15:11 Pulse 75 12/13/24 15:11 BP 140/62 H 12/13/24 15:11 Pulse Ox 94 12/13/24 15:11 Oxygen Delivery Method Room Air 12/13/24 15:11 Care Plan Goal for BP management: Will continue current dose of antihypertensive medication, he is fairly sensitive to antihypertensive medications and has to multiple side effects to antihypertensives. Next steps: Diligently monitor blood pressure at home consider increasing losartan dose to 50 mg BMI result Body Mass Index 20.4 Tobacco/Smoking Status: Tobacco use Status Tobacco use date assessed 12/13/24 12/13/24 15:30 Patient Tobacco Use Status Former Tobacco user 12/13/24 15:13 e-Cigarette/Vaping Use Never Used 12/13/24 15:13 PHQ-9: PHQ-9 Score PHQ-9: Total score 0 12/13/24 15:31 Depression Screening Interpretation: Negative Thrive Assessment: Date of Thrive Assessment Date Thrive assessed 12/13/24 12/13/24 15:15 Currently or been in a relationship where the following occur: No concerns reported Const General: healthy appearing, no acute distress, alert and awake Nutritional Appearance: well nourished Orientation/consciousness: oriented to person, oriented to place and oriented to time HENMT Ears: TM's normal bilaterally General nose exam: Normal nasal mucous membranes and turbinates present Eyes Conjunctivae: conjunctivae normal Sclerae: sclerae normal Pupils: Equal, round and reactive pupils present Neck Neck: Yes no lymphadenopathy and Yes no JVD Thyroid: Thyroid normal Carotids: no bruits Resp Effort & Inspection: normal respiratory effort and not tachypneic Auscultation: no crackles, no rales, no rhonchi and no wheezes Cardio Rate: regular rate Rhythm: regular rhythm Heart sounds: no murmurs and normal S1 and S2 GI Palpation (GI): Soft to palpation, nontender, no hepatomegaly and no splenomegaly Auscultation: normal bowel sounds Skin General skin exam: no rashes or lesions noted and dry skin Neuro General: oriented to person, oriented to place and oriented to time Cranial nerves: Yes Equal, round and reactive pupils present Speech: No Abnormal speech present Gait exam (Neuro): Normal gait present Motor exam (neuro): no tremor noted Extrem Right upper extremity: full ROM Left upper extremity: full ROM Right lower extremity: full ROM; no edema Left lower extremity: full ROM; no edema Psych Mental Status: mental status grossly normal Speech and movement: Normal speech and movement present Affect: normal affect Attitude: cooperative Thought process: Normal thought process present Coding Level of Care Code Est Pt Level 4 (87987) Diagnoses Other emphysema J43.8 COPD type: emphysema Emphysema type: other Essential hypertension I10 Hypertension type: essential hypertension Chest pain at rest R07.9 Additional Codes ISA-7 Assessment Billing - ISA-7 Assessment Tool: ISA-7 Assessment 10241 ([id number]) PHQ-9 - 30405 - PHQ-9 Billing: Yes ([id number]) Assessment & Plan Assessment & Plan (1) COPD (chronic obstructive pulmonary disease): Code(s): J44.9 - Chronic obstructive pulmonary disease, unspecified Category: Medical Qualifiers: COPD type: emphysema Emphysema type: other Qualified Code(s): J43.8 - Other emphysema Plan: Patient was a previous smoker, smoked for 50 years. He is in the lung cancer screening program and getting annual long CTs. Does have pulmonary nodules that appear benign.. Due to patient's reports of worsening shortness of breath on exertion over last year we Plan to initiate treatment with Anoro, considering patient?s increasing dyspnea and inadequate relief from rescue inhalers. (2) HTN (hypertension): Code(s): I10 - Essential (primary) hypertension Category: Medical Qualifiers: Hypertension type: essential hypertension Qualified Code(s): I10 - Essential (primary) hypertension Plan: Patient's blood pressure slightly elevated today in office. Yeyo is pretty sensitive to antihypertensive medication due to multiple side effects to antihypertensives.. Advised patient to monitor blood pressure more closely at home and will consider increasing losartan dose. He is now off hydrochlorothiazide due to having side effects of dizziness. Goal blood pressures to be below 140/90. (3) Chest pain at rest: Code(s): R07.9 - Chest pain, unspecified Category: Medical Plan: Arranged for a cardiac stress test given potential cardiac risk factors from smoking history. Orders: Orders Complete Blood Count no Diff 12/13/24 D63.0 - Anemia in neoplastic disease Comprehensive Dietrich. Panel Fast 12/13/24 I10 - Essential (primary) hypertension Prostate Specific Antigen Scr 12/13/24 I10 - Essential (primary) hypertension, Z12.5 - Encounter for screening for malignant neoplasm of prostate CA stress test 12/13/24 R07.9 - Chest pain, unspecified IRON PROFILE 12/13/24 D50.9 - Iron deficiency anemia, unspecified, D63.0 - Anemia in neoplastic disease Microalbumin, Random (w Creat) 12/13/24 I10 - Essential (primary) hypertension Medications: New albuterol sulfate 90 mcg/actuation 1 inh inhalation QID PRN 8.5 grams 3RF shortness of breath or wheezing 30 days J43.8 - Other emphysema umeclidinium-vilanterol 62.5-25 mcg/actuation (Anoro Ellipta) 1 inh inhalation DAILY 60 ea 3RF 30 days J43.8 - Other emphysema Patient Instructions: Goal: Blood pressure to be below 140/90, , control COPD symptoms Barriers: Adherence to physical activity and healthy eating habits
== END 2024-12-13 15:55 | disposition home or self-care (01) ==
LOC: HO.HMCH 14:58
PROVIDERS: PCP Physician Assistant; Visit Provider Physician Assistant
DX: J43.8 Other emphysema (principal); I10 Essential (primary) hypertension; R07.9 Chest pain, unspecified

== ENCOUNTER → 2024-12-13 14:57 | Outpatient (BNVA) | payer MEDICARE, SELFPAY | PROVIDERS: PCP Physician Assistant; Visit Provider Physician Assistant | DX: J43.8 Other emphysema (principal); I10 Essential (primary) hypertension; R07.9 Chest pain, unspecified | CPT/HCPCS: 96127; 99212 ==

== ENCOUNTER → 2025-02-03 10:23 | Outpatient (REF) | payer MEDICARE, SELFPAY ==
--- NOTE | 2025-02-03 10:25 | CA_ITS ---
Acquisition Time: 2025-02-03 10:35:32 Total Exercise Time: 00:05:01 Test Indications: chest pain Medications: Protocol: NATHAN Max HR: 166 BPM 107% of Pred: 154 BPM Max BP: 144/64 mmHG Max Work Load: 7.0 METS Exercise stress test with exercise 5 mins 1 sec of Nathan Protocol, achieving 107% MPHR, with reports of SOB, no chest pain, with isolated PVCs, with normotensive repsonse tpo exercise. Without EKG changes meeting criteria for ischemia. In recovery, breathing returend to basleine. Test reviewed with Dr. Randhawa. Referred By: Julian Felder Electronically Signed By: Michael London
--- OUTSIDE RECORDS SUMMARY | 2025-02-03 12:05 | XMS_ITS | Clinical Summary ---
Author Organization [facility] Address [address] [place] [address] Care Team Providers Care Director Of Casework Name Role Phone Unavailable Primary Care Provider Unavailabl e Social History Tobacco Use Types Packs/Day Years Used Date Smoking Tobacco: Never Assessed Sex and Gender Information Value Date Recorded Sex Assigned at Not on file Gender Identity Not on file Sexual Orientation Not on file Plan of Treatment Not on file
== END ==
LOC: HO.CARD 10:23
PROVIDERS: PCP Physician Assistant; Visit Provider Physician Assistant
DX: R07.9 Chest pain, unspecified (principal)
CPT/HCPCS: 93017

== ENCOUNTER → 2025-02-03 10:25 | Outpatient (BNV) | payer MEDICARE, SELFPAY | PROVIDERS: PCP Physician Assistant | DX: R06.02 Shortness of breath (principal); I49.3 Ventricular premature depolarization | CPT/HCPCS: 93016; 93018 ==

== ENCOUNTER 2025-06-22 09:29 | Outpatient (AMB) | payer MEDICARE, SELFPAY ==
[2025-06-22 09:34] VITALS: BP 118/66; PULSE 90; TEMP 36.3; O2SAT 93; BMI 21.5
--- NOTE | 2025-06-22 09:34 | A.OFFPC_ITS ---
Vital Signs 06/22/25 09:34 Height 5 ft 9 in Weight 145 lb 8 oz BMI 21.5 BP 118/66 Blood Pressure Location Lt brachial Position Sitting Pulse 90 Pulse Source Pulse Oximeter Temp 97.3 F Temp Source Temporal Artery Scan Pulse Oximetry (%) 93 Oxygen Delivery Method Room Air Intake Visit Reasons: PE Allergies amlodipine Allergy (Unknown, Verified 06/22/25 09:40) Dizziness lisinopril Allergy (Unknown, Verified 06/22/25 09:40) Dizziness HCTZ Adverse Reaction (Intermediate, Uncoded 06/22/25 09:40) dizziness Medication List - Last Reconciled 06/22/25 by Julian Felder PA-C albuterol sulfate 90 mcg/actuation 1 inh inhalation QID PRN 30 days blood pressure monitor As directed hydroxyzine HCl 20 mg (2 x 10 mg) PO BEDTIME 30 days losartan 25 mg PO DAILY umeclidinium-vilanterol 62.5-25 mcg/actuation 1 inh inhalation DAILY 30 days Tobacco use date assessed: 06/22/25 Fall risk assessment: No Falls in past year Last assessed Fall Risk: 06/22/25 Dental Screening Dental Screen Date: 06/22/25 Did you have a dental visit in the last 12 months?: Yes Did you have a dental problem in the last 6 months where you did not have access to dental care?: No Was dental information given to patient?: Patient has dentist HPI PE HPI Details Yeyo 64 y/o male here today for an annual physical. ? Patient's past medical history significant for hypertension, moderate to severe Emphysema. ? COPD: Smoked 50 years, quite smoking ( 08/13/21) !! Patient continues to follow the lung cancer screening program. He has not had to use his maintenance inhaler as his breathing has been stable. Of note did recently get a cardiac stress test which did not meet any criteria for ischemic heart disease. .. HTN: Blood pressure today in office acceptable. patient does not monitor his blood pressure on regular basis. He has stopped hydrochlorothiazide due to dizziness in his dizziness has resolved. Colonoscopy: done in 2017, normal repeat in 10 years .. Vaccine: UTD with Tdap/ , needs PCV-20, COVID , considering shingles vaccine., willing to get flu vaccine today [facility] Medical History HTN (hypertension) Personal history of nicotine dependence Normal colonoscopy Surgical History H/O hernia repair History of appendectomy Family History Father Medical history unknown Mother Medical history unknown Social History (Updated 06/22/25 @ 09:45 by Julian Felder PA-C) Housing: House Alcohol intake: current Alcohol intake frequency: a few times a week Alcohol type: beer Patient Tobacco Use Status: Former Tobacco user Cigarettes Per Day: 10 Years Smoked: 45, pt states quit 08/14/22 e-Cigarette/Vaping Use: Never Used service: No Current occupational status: retired Cognitive needs: No Hearing needs: No Vision needs: No Questionnaire PHQ-9 Over the last 2 weeks, how often have you been bothered by any of the following problems? 1. Little interest or pleasure in doing things: not at all 2. Feeling down, depressed, or hopeless: not at all 3. Trouble falling or staying asleep, or sleeping too much: not at all 4. Feeling tired or having little energy: not at all 5. Poor appetite or overeating: not at all 6. Feeling bad about yourself - or that you are a failure or have let yourself or your family down: not at all 7. Trouble concentrating on things, such as reading the newspaper or watching television: not at all 8. Moving or speaking so slowly that other people could have noticed. Or the opposite - being so fidgety or restless that you have been moving around a lot more than usual: not at all 9. Thoughts that you would be better off or of hurting yourself in some way: not at all Total score: 0 Depression Screening Interpretation: Negative Depression Screening Done: Yes 02508 - PHQ-9 Billing: Yes Source: Developed by Drs. Driss Boykin, Malika Sneed, Aaron Hurtado and colleagues, with an educational juan alberto from [employer]. Thrive Questionnaire Date Thrive assessed: 06/21/25 I am a: Patient What is your living situation today?: I have a steady place to live Within the past 12 months, did the food you bought not last and you didn't have the money to get more?: Never true Within the past 12 months, did you worry whether your food would run out before you got money to buy more?: Never true Do you have trouble paying for medicines?: No Do you have trouble getting transportation to medical appointments?: No Do you have trouble paying your heating and electricity bill?: No Do you have trouble taking care of your child, family member or friend?: No Do you have trouble with day-to-day activities such as bathing, preparing meals, shopping, managing finances, etc.?: No Are you currently unemployed and looking for a job?: No Are you interested in more education?: No Please select the resources that you would like help with: None Currently or been in a relationship where the following occur: No concerns reported THRIVE Score: 0 AUDIT C Alcohol Use Questionnaire (AUDIT-C) 1. How often do you have a drink containing alcohol?: 2-3 times a week 2. How many drinks containing alcohol do you have on a typical day when you are drinking?: 3 or 4 3. How often do you have six or more drinks on one occasion?: Less than monthly Total Score: 5 ISA-7 AMB Questionnaire ISA-7 Date ISA - 7 assessed: 12/13/24 Feeling nervous, anxious, or on edge: 1 = Several days Not being able to stop or control worryin = Not at all Worrying too much about different things: 1 = Several days Trouble relaxin = Not at all Being so restless that it is hard to sit still: 0 = Not at all Becoming easily annoyed or irritable: 0 = Not at all Feeling afraid as if something awful might happen: 0 = Not at all Total ISA-7 score (0-4 normal; 5-9 mild; 10-14 moderate; 15-21 severe): 2 Source: Developed by Drs. Driss Boykin, Malika Sneed, Aaron Hurtado and colleagues, with an educational juan alberto from [employer]. ISA-7 Assessment Billing ISA-7 Assessment Tool: ISA-7 Assessment 84379 Review of Systems Const Denies body aches, Denies chills, Denies excessive sweating, Denies fatigue, Denies fever(s) and Denies headache(s) Eyes Denies blurry vision ENT Denies dysphagia, Denies vertigo, Denies dizziness, Denies headache(s), Denies hearing loss and Denies tinnitus Card Denies chest pain, Denies chest pain with activity, Denies syncope, Denies irregular heart rhythm and Denies dyspnea Resp Denies chest congestion, Denies cough, Denies hemoptysis, Denies dyspnea and Denies wheezing GI Denies abdominal pain, Denies melena, Denies hematochezia, Denies coffee ground emesis, Denies dysphagia, Denies diarrhea, Denies nausea and Denies vomiting Denies difficulty urinating, Denies dysuria, Denies urinary frequency, Denies urinary hesitancy and Denies urinary urgency Musc Denies arthralgias, Denies limited range of motion, Denies muscle cramps and Denies muscle weakness Skin/Breast Denies rash and Denies skin ulcer Neuro Denies Abnormal speech present, Denies confusion, Denies vertigo, Denies dizziness, Denies syncope, Denies headache(s), Denies memory loss and Denies seizure-like activity Psych Denies anxiety, Denies confusion, Denies depression, Denies memory loss, Denies panic attacks and Denies paranoia Endo Denies excessive sweating, Denies fatigue, Denies flushing, Denies polydipsia and Denies polyuria Aller/Immun Denies wheezing Physical exam (Primary Care) Vital Signs: Last Vital Signs Temp 97.3 F 06/22/25 09:34 Pulse 90 06/22/25 09:34 BP 118/66 06/22/25 09:34 Pulse Ox 93 06/22/25 09:34 Oxygen Delivery Method Room Air 06/22/25 09:34 BMI result Body Mass Index 21.5 Tobacco/Smoking Status: Tobacco use Status Tobacco use date assessed 06/22/25 06/22/25 09:38 Patient Tobacco Use Status Former Tobacco user 06/22/25 09:45 e-Cigarette/Vaping Use Never Used 06/22/25 09:45 PHQ-9: PHQ-9 Score PHQ-9: Total score 0 06/22/25 09:46 Depression Screening Interpretation: Negative Thrive Assessment: Date of Thrive Assessment Date Thrive assessed 06/21/25 06/22/25 09:38 Currently or been in a relationship where the following occur: No concerns reported Const General: cooperative, comfortable, no acute distress, alert and awake; No confusion Orientation/consciousness: oriented to person, oriented to place, patient oriented x3 and No confusion HENMT Head: Yes normocephalic Ears: external ears normal and TM's normal bilaterally Face and sinus: No sinus tenderness Mouth: Normal oral and palatal mucosa present and tongue normal Teeth and gingiva: dentition normal and gingiva normal Throat: Yes posterior oropharynx normal, Yes tonsils normal and Yes uvula midline Eyes Conjunctivae: conjunctivae normal Sclerae: sclerae normal Pupils: Equal, round and reactive pupils present EOM: EOMs intact bilaterally Direct Ophthalmoscopy: No no photophobia Neck Neck: Yes no lymphadenopathy, No tender and Yes no JVD Thyroid: Thyroid normal Carotids: no bruits Chest Chest palpation & inspection: no tenderness Resp Effort & Inspection: normal respiratory effort, no audible wheezes, not labored and no stridor Auscultation: no crackles, no rales, no rhonchi and no wheezes Cardio Jugular venous distension: no JVD Rate: regular rate, not bradycardic and not tachycardic Rhythm: regular rhythm Bruits: no carotid bruits Peripheral pulses: Peripheral pulses 2+ throughout GI Inspection: Yes normal to inspection, No abdominal wall ecchymosis and No visible herniation Palpation (GI): Soft to palpation, nontender, no guarding, not rigid and No hepatosplenomegaly present Auscultation: normoactive bowel sounds General: Yes no CVA tenderness Back/Spine/Pelvis Back: no CVA tenderness and No back tenderness Cervical Spine: cervical ROM normal Thoracic/Lumbar Spine: thoracic and lumbar spine normal to inspection, straight leg raise negative bilaterally, No thoraco-lumbar ROM limited and No lumbar spinal tenderness Skin Lesions: no lesions Rashes: no rashes Wounds: no wounds Neuro General: oriented to person, oriented to place, patient oriented x3, CN's II-XI intact bilaterally and No confusion Cranial nerves: Yes Equal, round and reactive pupils present and Yes Normal accommodation reflex present Cognition (Neuro): normal cognition Speech: No Abnormal speech present Gait exam (Neuro): Normal gait present Motor exam (neuro): 5/5 motor strength present throughout Extrem Right upper extremity: full ROM; no cyanosis Left upper extremity: full ROM; no cyanosis Right lower extremity: no edema Left lower extremity: no edema Psych Appearance: grossly normal Mental Status: mental status grossly normal Affect: normal affect Attitude: cooperative Thought process: Normal thought process present Office Procedures Flu Questionnaire Does the patient have a severe egg allergy?: No Does the patient have severe life threatening allergies?: No Does the patient have a fever or illness today?: No Has the patient ever had Guillain-Clearlake Syndrome?: No Has the patient ever had any past reaction to a flu shot?: No Immunizations Fluarix [id number] (PF) 45 mcg (15 mcg x 3)/0.5 mL IM syringe Performing Provider: Julian Felder PA-C [facility] [place] [facility] Administered by: Debbie Tillman CMA on 06/22/25 09:57 Dose Route Admin Location Dispensed Lot Number Expiration Date NDC Merchandising Assistant 0.5 mL IM Left Deltoid 0.5 mL [id number] 02/21/26 93658-456-[address] VIS Given Date VIS Provided VIS Publication Date 06/22/25 Single Vaccine 24 Eligibility Eligibility Date Funding Source Not [facility] Eligible 06/22/25 Private Coding Level of Care Code Est Pt Prev Care >65y(72487) Diagnoses Annual physical exam Z00.00 Other emphysema J43.8 COPD type: emphysema Emphysema type: other Essential hypertension I10 Hypertension type: essential hypertension Personal history of nicotine dependence Z87.891 Additional Codes ISA-7 Assessment Billing - ISA-7 Assessment Tool: ISA-7 Assessment 10219 ([id number]) PHQ-9 - 10698 - PHQ-9 Billing: Yes ([id number]) Assessment & Plan Assessment & Plan (1) Annual physical exam: Code(s): Z00.00 - Encounter for general adult medical examination without abnormal findings Category: Medical Plan: As per HPI (2) COPD (chronic obstructive pulmonary disease): Code(s): J44.9 - Chronic obstructive pulmonary disease, unspecified Category: Medical Qualifiers: COPD type: emphysema Emphysema type: other Qualified Code(s): J43.8 - Other emphysema Plan: Patient was a previous smoker, smoked for 50 years. He is in the lung cancer screening program and getting annual long CTs. Does have pulmonary nodules that appear benign.. Due to patient's reports of worsening shortness of breath on exertion over last year we Plan to initiate treatment with Anoro, considering patient?s increasing dyspnea and inadequate relief from rescue inhalers. (3) HTN (hypertension): Code(s): I10 - Essential (primary) hypertension Category: Medical Qualifiers: Hypertension type: essential hypertension Qualified Code(s): I10 - Essential (primary) hypertension Plan: Patient's blood pressure acceptable today in office. He continues on losartan with good effect on his blood pressure. Goal blood pressures to be below 140/90. (4) Personal history of nicotine dependence: Comment: (30pyh - quit 07/2022) Code(s): Z87.891 - Personal history of nicotine dependence Category: Medical Plan: Patient was congratulated on for years of note smoking. Continues with CT lung screening for lung cancer Orders: Orders Influenza [id number] Immunization Today Z23 - Encounter for immunization Patient Instructions: Goal: Blood pressure to remain below 130/80 Barriers: Adherence to physical activity and healthy eating habits
--- OUTSIDE RECORDS SUMMARY | 2025-06-22 11:15 | XMS_ITS | Clinical Summary ---
Author Organization [facility] Address [address] [place] [address] Care Team Providers Care Candle Molder Machine Name Role Phone Unavailable Primary Care Provider Unavailabl e Social History Tobacco Use Types Packs/Day Years Used Date Smoking Tobacco: Never Assessed Sex and Gender Information Value Date Recorded Sex Assigned at Not on file Gender Identity Not on file Sexual Orientation Not on file Plan of Treatment Not on file
--- OUTSIDE RECORDS SUMMARY | 2025-06-22 11:16 | XMS_ITS | Patient Health Record ---
Author Organization [facility] Address [address] [place] [address] Care Team Providers Care Unemployment Benefits Claims Taker Name Role Phone Becca(inactive) Naveen SOMERS Primary Care Provider U Arie Álvarez Jr Unavailable Reason For Referral No Information Medications Medication SIG (Take, Route, Frequency, Duration) Notes Start Date End Date Status Colyte with Flavor Packs 240 GM As directed Orally Over the specified time.; Duration: 1 day(s) 05/24/2016 Active tylenol prn Active Problems Problem Type SNOMED Code ICD Code Onset Dates Problem Status W/U Status Risk Notes Problem Colon cancer screening (930635914) Colon cancer screening (Z12.11) Active confirmed Plan Of Treatment Future Test Test Name Order Date COLONOSCOPY 05/24/2016 Insurance Providers Payer Name Payer Address Payer Phone Subscriber Number Group Number Insured Name Patient Relationship to Insured Coverage Start Date Coverage End Date [facility] [address] [place] [address] [phone] [id number] MYA PORTILLO Self - patient is the insured Medical (General) History Medical History History ICD Code right rotator cuff tear Surgical History Surgery Date(Month/Year) hernia repair appendectomy
== END 2025-06-22 10:00 | disposition home or self-care (01) ==
LOC: HO.HMCH 09:31
PROVIDERS: PCP Physician Assistant; Visit Provider Physician Assistant
DX: Z00.00 Encounter for general adult medical examination without abnormal findings (principal); J43.8 Other emphysema; I10 Essential (primary) hypertension; Z87.891 Personal history of nicotine dependence; Z23 Encounter for immunization

== ENCOUNTER → 2025-06-22 09:29 | Outpatient (BNVA) | payer MEDICARE, SELFPAY | PROVIDERS: PCP Physician Assistant; Visit Provider Physician Assistant | DX: Z00.00 Encounter for general adult medical examination without abnormal findings (principal); J43.8 Other emphysema; I10 Essential (primary) hypertension; Z87.891 Personal history of nicotine dependence; Z23 Encounter for immunization; Z13.31 Encounter for screening for depression; Z13.39 Encounter for screening examination for other mental health and behavioral disorders | CPT/HCPCS: 90471; 90656; 96127; 99397 ==

== ENCOUNTER 2025-08-11 07:46 | Outpatient (REF) | payer MEDICARE, SELFPAY ==
--- OUTSIDE RECORDS SUMMARY | 2025-08-11 07:49 | XMS_ITS | Patient Health Record ---
Author Organization [facility] Address [address] [place] [address] Care Team Providers Care Assembly Worker Name Role Phone Becca(inactive) Naveen SOMERS Primary Care Provider U Arie Álvarez Jr Unavailable Reason For Referral No Information Medications Medication SIG (Take, Route, Frequency, Duration) Notes Start Date End Date Status Colyte with Flavor Packs 240 GM Solution Reconstituted As directed Orally Over the specified time.; Duration: 1 day(s) 05/24/2016 Active tylenol prn Active Social History Social History Additional Details Category Social Info Options Details Miscellaneous: Marital status: Occupation: [employer] 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 drinker Problems Problem Type SNOMED Code ICD Code Onset Dates Problem Status W/U Status Risk Notes Problem Colon cancer screening (573344264) Colon cancer screening (Z12.11) Active confirmed Plan Of Treatment Future Test Test Name Order Date COLONOSCOPY 05/24/2016 Insurance Providers Payer Name Payer Address Payer Phone Subscriber Number Group Number Insured Name Patient Relationship to Insured Coverage Start Date Coverage End Date [facility] [address] [place] [address] [phone] [id number] MYA PORTILLO Self - patient is the insured Medical (General) History Medical History History ICD Code right rotator cuff tear Surgical History Surgery Date(Month/Year) hernia repair appendectomy
--- OUTSIDE RECORDS SUMMARY | 2025-08-11 07:49 | XMS_ITS | Clinical Summary ---
Author Organization [facility] Prior to 01/22/[address] [place] [id number] Care Team Providers Care Timber Management Specialist Name Role Phone Unavailable Primary Care Provider Unavailabl e Social History Tobacco Use Types Packs/Day Years Used Date Smoking Tobacco: Never Assessed Sex and Gender Information Value Date Recorded Sex Assigned at Not on file Gender Identity Not on file Sexual Orientation Not on file Plan of Treatment Not on file
[2025-08-11 08:47] LABS: Hematocrit 44.1 % (42.0-52.0); Hemoglobin 15.0 g/dl (14.0-18.0); Mean Corpuscular HGB Conc 34.0 g/dl (31.0-36.0); Mean Corpuscular Hemoglobin 31.6 pg (27.0-33.0); Mean Corpuscular Volume 93.0 fL (80.0-98.0); NRBC Abs Auto 0.000 X10*3/uL (0.0-0.012); NRBC Pct Auto 0.0 /100WBC (0.0-0.2); Platelet Count 318 X10*3/uL (160-400); Red Blood Count 4.74 X10*6/uL (4.60-5.80); White Blood Count 7.8 X10*3/uL (4.8-10.8)
[2025-08-11 09:30] LABS: Microalbum/Creatinine Ratio Ur 7.3 ug/mg cr (<30)
[2025-08-11 10:28] LABS: Alanine Aminotransferase 28 U/L (0-40); Albumin Level 4.9 g/dL (3.5-5.0); Anion Gap 11 (12-20); Aspartate Amino Transferase 28 U/L (5-37); Blood Urea Nitrogen 25 mg/dL (9-16); Calcium 9.5 mg/dL (8.4-10.2); Carbon Dioxide 27 mmol/L (22-29); Chloride 108 mmol/L (96-108); Estimated Glomerular Filt Rate > 60; Iron 136 mcg/dL (45-160); Percent Iron Saturation 41 % (15-50); Potassium 4.4 mmol/L (3.3-5.1); Sodium 142 mmol/L (135-145); Total Iron Binding Capacity 333 mcg/dL (228-428); Total Protein 8.0 g/dL (6.5-8.0); Unsaturated Iron Binding 197 ug/dL
[2025-08-11 10:34] LABS: Alkaline Phosphatase 57 U/L (39-117)
== END 2025-08-11 07:47 | disposition home or self-care (01) ==
LOC: HO.LAB 07:46
PROVIDERS: PCP Physician Assistant; Visit Provider Physician Assistant
DX: I10 Essential (primary) hypertension (principal); D63.0 Anemia in neoplastic disease; D50.9 Iron deficiency anemia, unspecified; Z12.5 Encounter for screening for malignant neoplasm of prostate
CPT/HCPCS: 36415; 80053; 82043; 82570; 83540; 84153; 85027